=== PATIENT | male | born 1955 | race Caucasian/White ===

== ENCOUNTER 2020-04-16 20:44 | Emergency (ER) | payer OTHER ==
[~2020-04-16] VITALS: Ht 172.7 cm; Wt 72.6 kg
[2020-04-16 20:47] VITALS: BP 145/79
[2020-04-16] MEDS ORDERED: MOBIC7.5 MG PO (21:36)
== END 2020-04-16 21:43 | disposition home or self-care (01) ==
LOC: ER 20:44
DX: R60.0 Localized edema (principal); M25.572 Pain in left ankle and joints of left foot; Z96.652 Presence of left artificial knee joint; Z98.890 Other specified postprocedural states